=== PATIENT | male | born 1970 | race Caucasian/White ===

== ENCOUNTER 2020-07-14 01:54 | Emergency (ER) | payer OTHER ==
[2020-07-14] MEDS ORDERED: Propofol 200 MG/20 ML SDV IVPUSH ONE (02:14)
[2020-07-14] MEDS ORDERED: Metoprolol Tartrate 5 MG/5 ML SDV IVPUSH ONE (02:38)
--- NOTE | 2020-07-14 02:52 | EDM.PDOC ---
ED HPI GENERAL MEDICAL PROBLEM - General Chief Complaint: Chest Pain Stated Complaint: CHEST PAIN Time Seen by Provider: 07/14/20 02:15 Source of Information: Reports: Patient History Limitations: Reports: No Limitations - History of Present Illness INITIAL COMMENTS - FREE TEXT/NARRATIVE: 49-year-old male, arrives with palpitations, mild chest pressure, and generalized malaise for the past 6 hours. He took three 3-hour exams today, is under a lot of stress, and took a 20 mg Adderall tablet 12 hours ago to help him with his concentration. Tonight while he was on the toilet he developed palpitations and a rapid heartbeat with mild chest pressure. When it did not go away after 5 hours he thought he should come in to have it checked. He has had symptoms like this before but it is never persisted. He has had several cardiac work-ups including an angiogram within the last few years. Onset: Sudden Duration: Hour(s): (6 hours ago) Associated Symptoms: Reports: Chest Pain (Pressure sensation), Diaphoresis, Malaise, Shortness of Breath. Denies: Confusion, Cough, Fever/Chills, Nausea/Vomiting, Weakness - Related Data Allergies Allergy/AdvReac Type Severity Reaction Status Date / Time sulfamethoxazole Allergy Rash Verified 07/14/20 01:58 [From Bactrim] trimethoprim [From Bactrim] Allergy Rash Verified 07/14/20 01:58 Home Meds: Home Meds Cetirizine [ZyrTEC] 10 mg PO DAILY 07/14/20 [History] Fish Oil/[place]-3 Fatty Acids [Fish Oil 1,000 MG] 1,000 mg PO ASDIRECTED 07/14/20 [History] Pantoprazole [ProTONIX Granules] 40 mg PO DAILY 07/14/20 [History] Past Medical History HEENT History: Reports: Hard of Hearing, Impaired Vision Cardiovascular History: Reports: Angina - Past Surgical History HEENT Surgical History: Reports: Tonsillectomy Other Cardiovascular Surgeries/Procedures: States he has had angiogram in the past. GI Surgical History: Reports: Colonoscopy, Small Bowel Other GI Surgeries/Procedures: full colectomy. Social & Family History - Tobacco Use Smoking Status *Q: Never Smoker - Caffeine Use Caffeine Use: Reports: Coffee - Recreational Drug Use Recreational Drug Use: No ED ROS GENERAL - Review of Systems Review Of Systems: See Below Constitutional: Reports: Malaise. Denies: Fever, Chills HEENT: Reports: No Symptoms Respiratory: Reports: Shortness of Breath. Denies: Cough Cardiovascular: Reports: Chest Pain, Lightheadedness, Palpitations. Denies: Syncope GI/Abdominal: Denies: Nausea, Vomiting : Reports: No Symptoms Musculoskeletal: Reports: No Symptoms Skin: Reports: Diaphoresis Neurological: Reports: Dizziness, Weakness ED EXAM, GENERAL - Physical Exam Exam: See Below Exam Limited By: No Limitations General Appearance: Alert, Anxious Eye Exam: Bilateral Eye: Normal Inspection Head: Atraumatic Respiratory/Chest: No Respiratory Distress, Lungs Clear Cardiovascular: Tachycardia, Irregularly Irregular GI/Abdominal: Normal Bowel Sounds, Soft, Non-Tender, Other (Large abdominal scar) Extremities: No Pedal Edema. No: Pallor Neurological: Alert, Oriented Psychiatric: Anxious Skin Exam: Warm, Dry, Diaphoretic EKG INTERPRETATION EKG Date: 07/14/20 Time: 02:10 Rhythm: A-Fib Rate (Beats/Min): 143 ST-T: Normal Course - Vital Signs Last Recorded V/S: Last Vital Signs Temp 98.6 F 07/14/20 02:11 Pulse 78 07/14/20 05:55 Resp 17 07/14/20 02:11 BP 119/81 07/14/20 05:55 Pulse Ox 97 07/14/20 02:11 - Orders/Labs/Meds Orders: Active Orders 24 hr Category Date Time Status EKG 12 Lead [EK] Routine Ther 07/14/20 02:14 Ordered Labs: Laboratory Tests 07/14/20 07/14/20 Range/Units 02:08 02:08 WBC 9.8 (4.5-11.0) K/uL RBC 6.66 H (4.30-5.90) M/uL Hgb 17.9 H (12.0-15.0) g/dL Hct 55.5 H (40.0-54.0) % MCV 83 (80-98) fL MCH 27 (27-31) pg MCHC 32 (32-36) % Plt Count 292 (150-400) K/uL Neut % (Auto) 56 (36-66) % Lymph % (Auto) 29 (24-44) % Louisa % (Auto) 11 H (2-6) % Eos % (Auto) 4 (2-4) % Baso % (Auto) 1 (0-1) % Sodium 139 L (140-148) mmol/L Potassium 3.8 (3.6-5.2) mmol/L Chloride 102 (100-108) mmol/L Carbon Dioxide 28 (21-32) mmol/L Anion Gap 12.8 (5.0-14.0) mmol/L BUN 12 (7-18) mg/dL Creatinine 1.3 (0.8-1.3) mg/dL Est Cr Clr Drug Dosing TNP Estimated GFR (MDRD) 58 L (>60) Glucose 102 (74-106) mg/dL Calcium 9.0 (8.5-10.1) mg/dL Troponin I < 0.017 (0.000-0.056) ng/mL Meds: Medications Discontinued Medications Generic Name Dose Route Start Last Admin Trade Name Freq PRN Reason Stop Dose Admin Metoprolol Succinate 50 mg 07/14/20 03:47 07/14/20 05:55 Toprol Xl PO 07/14/20 03:48 50 mg ONETIME ONE Administration Metoprolol Tartrate 5 mg 07/14/20 02:38 07/14/20 02:43 Lopressor IVPUSH 07/14/20 02:39 5 mg ONETIME ONE Administration Propofol 160 mg 07/14/20 02:14 07/14/20 02:43 Diprivan 20 Ml IVPUSH 07/14/20 02:15 160 mg ONETIME ONE Administration - Re-Assessments/Exams Free Text/Narrative Re-Assessment/Exam: 07/14/20 02:50 Initial EKG showed atrial fibrillation with RVR. CBC, BMP and troponin were o btained and the patient was removed in her cardiac room. Preparations were made for cardioversion. After informed consent, the patient was converted with 200 J of synchronized cardioversion after 200 mg of IV propofol. He did convert to sinus rhythm for 30 to 40 seconds, then reverted back to atrial fibrillation. He was still under significant sedation, so a second 200 J cardioversion was given and he converted to sinus rhythm much more stable. He was then given 5 mg of IV metoprolol. A second EKG showed normal sinus rhythm and the patient recovered from propofol sedation very rapidly without complication. 07/14/20 02:52 Labs returned reassuring, hemoglobin is actually high at 17.9, white count normal, troponin 0 and electrolytes normal. Patient was monitored for an additional hour. 07/14/20 05:48 Patient rested quietly for 3 hours, remained in a normal sinus rhythm of 70. He was given 1 oral dose of metoprolol XL prior to discharge, 50 mg. Departure - Departure Time of Disposition: 06:00 Disposition: Home, Self-Care 01 Clinical Impression: Atrial fibrillation with RVR - Discharge Information Instructions: Atrial Fibrillation Referrals: PCP,None [Primary Care Provider] - Forms: ED Department Discharge Care Plan Goals: Consider rechecking with your primary providers when you get home. Take your EKGs and medication information with to your recheck, you had an episode of atrial fibrillation with rapid ventricular response. You were given metoprolol. Sepsis Event Note (ED) - Evaluation Sepsis Screening Result: No Definite Risk - Focused Exam Vital Signs: Vital Signs Temp Pulse Pulse Resp BP BP Pulse Ox 07/14/20 05:55 78 119/81 07/14/20 02:43 89 126/93 H 07/14/20 02:11 98.6 F 143 H 17 133/106 H 97 - My Orders Last 24 Hours: My Active Orders 07/14/20 02:14 EKG 12 Lead [EK] Routine - Assessment/Plan Last 24 Hours: My Active Orders 07/14/20 02:14 EKG 12 Lead [EK] Routine
[2020-07-14] MEDS ORDERED: Metoprolol Succinate 50 MG Tab.ER PO ONE (03:47)
== END 2020-07-14 06:00 | disposition home or self-care (01) ==
LOC: JP.ED 01:54
DX: I48.91 Unspecified atrial fibrillation (principal); Z88.2 Allergy status to sulfonamides; Z79.899 Other long term (current) drug therapy
CPT/HCPCS: 36415; 80048; 84484; 85025; 93005; 93010; 96374; 99285; A9270; J2704; J3490; 92950; 99284